=== PATIENT | female | born 1985 | race Caucasian/White ===

== ENCOUNTER 2017-08-08 02:22 | Emergency (ER) | payer MEDICAID, OTHER ==
[~2017-08-08] VITALS: Ht 165.1 cm; Wt 51.1 kg
[~2017-08-08 02:22] MED LIST: PREN1TAB10 PO
[2017-08-08] MEDS ORDERED: LIDOCAINE 1%, 10ML ONE (03:40)
[2017-08-08] MEDS ORDERED: ACETAMINOPHEN 500 MG TABLET ONE (03:42)
[2017-08-08] MEDS ORDERED: DOXYCYCLINE 100MG TABLET ONE (03:42)
[2017-08-08] MEDS ORDERED: ACETAMINOPHEN 325 MG TABLET PO ONE (04:00)
[2017-08-08] MEDS ORDERED: LIDOCAINE 1%, 20ML SQ ONE (04:00)
[2017-08-08] MEDS ORDERED: DOXYCYCLINE 100MG TABLET PO ONE (04:00)
[2017-08-08 04:28] VITALS: BP 119/74
== END 2017-08-08 04:44 | disposition home or self-care (01) ==
LOC: ED 04:30
DX: L03.113 Cellulitis of right upper limb (principal)
CPT/HCPCS: 10060; 87070; 87077; 87186; 87205; 99284

== ENCOUNTER 2018-02-18 00:55 | Emergency (ER) | payer MEDICAID ==
[~2018-02-18] VITALS: Ht 170.2 cm; Wt 64.4 kg
[2018-02-18 01:11] VITALS: BP 158/100
[2018-02-18] MEDS ORDERED: AZITHROMYCIN 500 MG TABLET PO ONE (01:30)
[2018-02-18] MEDS ORDERED: CEFTRIAXONE 250 MG IM ONE (01:30)
[2018-02-18] MEDS ORDERED: CEFTRIAXONE 250 MG ONE (01:47)
[2018-02-18] MEDS ORDERED: AZITHROMYCIN 250 MG TABLET ONE (01:47)
== END 2018-02-18 02:21 | disposition home or self-care (01) ==
LOC: ED 02:19
DX: N89.8 Other specified noninflammatory disorders of vagina (principal); R10.30 Lower abdominal pain, unspecified; Z20.2 Contact with and (suspected) exposure to infections with a predominantly sexual mode of transmission
CPT/HCPCS: 81025; 87491; 87591; 96372; 99284; J0696

== ENCOUNTER 2018-08-29 11:59 | Emergency (ER) | payer MEDICAID ==
[~2018-08-29] VITALS: Ht 170.2 cm; Wt 69.7 kg
[2018-08-29 12:06] VITALS: BP 129/87
--- NOTE | 2018-08-29 12:19 | NUR ---
PT TO ED FOR NAUSEA X1.5 WEEK. PT STATES CURRENTLY 3-6 WEEK . UNKNOWN. LMP. NO N/V AT THIS TIME. CONNECTED TO MONITORS. VSS. AWAITING MD ASSESSEMTN AT THIS TIME.
[2018-08-29] MEDS ORDERED: ONDANSETRON ODT 4 MG PO ONE (12:30)
[2018-08-29] MEDS ORDERED: ONDANSETRON ODT 4 MG ONE (12:44)
[2018-08-29 13:01] LABS: BASOPHILS # (AUTO) 0.03 x10^3/uL (0-0.1); BASOPHILS % (AUTO) 0 % (0-1); EOSINOPHILS % (AUTO) 2 % (1-7); LYMPHOCYTES # (AUTO) 2.42 x10^3/uL (1-3.4); LYMPHOCYTES % (AUTO) 24 % (22-44); MD NO; MEAN CORPUSCULAR HEMOGLOBIN 28.4 pg (27.0-34.8); MEAN CORPUSCULAR VOLUME 86.1 fL (80-100); MEAN PLATELET VOLUME 8.5 fL (7.4-10.4); MONOCYTES # (AUTO) 0.58 x10^3/uL (0.2-0.8); MONOCYTES % (AUTO) 6 % (2-9); NEUTROPHILS # (AUTO) 6.83 x10^3/uL (1.8-6.8); NEUTROPHILS % (AUTO) 68 % (42-75); PLATELET COUNT 282 x10^3/uL (130-400); RED BLOOD COUNT 4.73 x10^6/uL (3.82-5.3); RED CELL DISTRIBUTION WIDTH 14.3 % (9.6-15.2)
[2018-08-29 13:09] LABS: MICROSCOPIC INDICATED
[2018-08-29 13:14] LABS: ALBUMIN 3.1 g/dL (3.4-5.0); ANION GAP 7 mmol/L (5-15); CALCIUM 8.2 mg/dL (8.5-10.1); CHLORIDE 107 mmol/L (98-107)
[2018-08-29 13:22] LABS: CULTURE INDICATED? NO
--- NOTE | 2018-08-29 13:45 | NUR ---
all results back at this time. chart up for recheck.
== END 2018-08-29 14:32 | disposition home or self-care (01) ==
LOC: ED 13:24
DX: Z32.01 Encounter for pregnancy test, result positive (principal)
CPT/HCPCS: 36415; 80048; 81001; 82040; 84703; 85025; 99283; Q0162